=== PATIENT | male | born 1980 | race African-American/Black ===

== ENCOUNTER 2019-10-03 17:47 | Inpatient (IN) | payer OTHER ==
[~2019-10-03] VITALS: Ht 170.2 cm; Wt 113.6 kg
[2019-10-03] MEDS ORDERED: FURO20 PO (18:00)
[2019-10-03] MEDS ORDERED: BUPR1FIL7 SL (18:00)
[2019-10-03] MEDS ORDERED: LISI-662 PO (18:00)
[2019-10-03] MEDS ORDERED: METO50 PO (18:00)
[2019-10-03] MEDS ORDERED: CloNIDine HCL 0.1 MG TABLET PO ONE (18:15)
[2019-10-03 18:52] LABS: BASOPHILS % (AUTO) 0.2 % (0.0-2.0); EOSINOPHILS % (AUTO) 0.1 % (1.0-6.0); HEMATOCRIT 38.9 % (41-53); HEMOGLOBIN 13.2 g/dL (13.5-17.5); LYMPHOCYTES # (AUTO) 1.5 K/uL (1.0-4.8); LYMPHOCYTES % (AUTO) 21.5 % (22.0-44.0); MEAN CORPUSCULAR HEMOGLOBIN 29.1 pg (26.0-34.0); MEAN CORPUSCULAR HGB CONC 33.9 G/dL (31.0-37.0); MEAN CORPUSCULAR VOLUME 86 fL (80-100); MONOCYTES # (AUTO) 0.4 K/uL (0.1-1.0); MONOCYTES % (AUTO) 5.5 % (2.0-9.0); NEUTROPHILS # (AUTO) 5.1 K/uL (1.8-7.7); NEUTROPHILS % (AUTO) 72.7 % (40.0-70.0); PLATELET COUNT (AUTO) 208 K/uL (150-450); RED BLOOD CELL COUNT(AUTO) 4.53 MIL/uL (4.50-5.90); RED CELL DISTRIBUTION WIDTH 13.8 % (11.5-14.5)
[2019-10-03 19:15] LABS: ANION GAP 11 mmol/L (8-16); CALCIUM, TOTAL 8.6 mg/dL (8.8-10.5); CARBON DIOXIDE 25 mmol/L (22-29); CHLORIDE 105 mmol/L (98-107); CREATININE 1.16 mg/dL (0.60-1.30); GLOMERULAR FILTR. RATE CALC > 60 mL/min (>60); GLUCOSE,RANDOM 98 mg/dL (70-110); POTASSIUM 3.6 mmol/L (3.5-5.1); SODIUM SERUM 141 mmol/L (136-145); UREA NITROGEN, BLOOD 11 mg/dL (7-18)
[2019-10-03 19:23] LABS: ALANINE AMINOTRANSFERASE 16 U/L (12-78); ALBUMIN 3.5 g/dL (3.4-5.0); ALKALINE PHOSPHATASE 67 U/L (46-116); ASPARTATE AMINOTRANSFERASE 19 U/L (15-37); BILIRUBIN,TOTAL 0.7 mg/dL (0.1-1.0)
[2019-10-03] MEDS ORDERED: ACETAMINOPHEN 325 MG TABLET PO PRN ×2 (20:30→22:30)
[2019-10-03] MEDS ORDERED: ONDANSETRON HCL 4 MG/2 ML VIAL IVP PRN (20:30)
[2019-10-03] MEDS ORDERED: 0.9% SODIUM CHLORIDE 10 ML SYRINGE IVP PRN (20:30)
[2019-10-03] MEDS ORDERED: ONDANSETRON HCL 4 MG TABLET PO PRN (21:30)
[2019-10-03] MEDS ORDERED: ALBUTEROL SULFATE HFA 90 MCG/PUFF 8 GM INHALER IH PRN (22:30)
[2019-10-03] MEDS ORDERED: PETROLATUM,WHITE 28 GM JELLY TP PRN (22:30)
[2019-10-03] MEDS ORDERED: METOCLOPRAMIDE HCL 5 MG/ML 2 ML VIAL IVP PRN (22:30)
[2019-10-03] MEDS ORDERED: LORazepam 2 MG/ML VIAL IVP PRN (22:30)
[2019-10-03] MEDS ORDERED: GuaiFENesin/D-METHORPHAN [SUGAR-FREE] 200-20MG/10 ML SYRUP UDCUP PO PRN (22:30)
[2019-10-03] MEDS ORDERED: MAGNESIUM HYDROXIDE SUSPENSION 30 ML UDCUP PO PRN (22:30)
[2019-10-03] MEDS ORDERED: NICOTINE 14 MG/24 HOUR PATCH TD PRN (22:30)
[2019-10-03] MEDS ORDERED: DOCUSATE SODIUM 100 MG CAPSULE PO PRN (22:30)
[2019-10-03] MEDS ORDERED: LOPERAMIDE HCL 2 MG CAPSULE PO PRN (22:30)
[2019-10-03 22:32] VITALS: BP 178/97
[2019-10-03] MEDS: IBUPROFEN 400 MG TABLET PO PRN (22:42)
[2019-10-03] MEDS: MAG HYDROX/AL HYDROX/SIMETH ES 30 ML SUSPENSION UDCUP PO PRN (22:46)
[2019-10-04 04:45] VITALS: BP 153/81
[2019-10-04] MEDS: LORazepam 1 MG TABLET PO PRN ×2 (07:06→14:06)
[2019-10-04 08:16] VITALS: BP 162/88
[2019-10-04 08:32] LABS: BASOPHILS % (AUTO) 0.3 % (0.0-2.0); EOSINOPHILS % (AUTO) 0.4 % (1.0-6.0); HEMATOCRIT 41.3 % (41-53); HEMOGLOBIN 14.1 g/dL (13.5-17.5); LYMPHOCYTES # (AUTO) 1.2 K/uL (1.0-4.8); LYMPHOCYTES % (AUTO) 25.6 % (22.0-44.0); MEAN CORPUSCULAR HEMOGLOBIN 28.9 pg (26.0-34.0); MEAN CORPUSCULAR HGB CONC 34.1 G/dL (31.0-37.0); MEAN CORPUSCULAR VOLUME 85 fL (80-100); MONOCYTES # (AUTO) 0.3 K/uL (0.1-1.0); MONOCYTES % (AUTO) 5.9 % (2.0-9.0); NEUTROPHILS # (AUTO) 3.3 K/uL (1.8-7.7); NEUTROPHILS % (AUTO) 67.8 % (40.0-70.0); PLATELET COUNT (AUTO) 203 K/uL (150-450); RED BLOOD CELL COUNT(AUTO) 4.87 MIL/uL (4.50-5.90)
[2019-10-04 08:58] LABS: ALANINE AMINOTRANSFERASE 24 U/L (12-78); ALBUMIN 3.4 g/dL (3.4-5.0); ALKALINE PHOSPHATASE 76 U/L (46-116); ANION GAP 6 mmol/L (8-16); ASPARTATE AMINOTRANSFERASE 20 U/L (15-37); BILIRUBIN,TOTAL 1.1 mg/dL (0.1-1.0); CALCIUM, TOTAL 8.6 mg/dL (8.8-10.5); CARBON DIOXIDE 28 mmol/L (22-29); CHLORIDE 106 mmol/L (98-107); CREATININE 1.08 mg/dL (0.60-1.30); GLOMERULAR FILTR. RATE CALC > 60 mL/min (>60); GLUCOSE,RANDOM 103 mg/dL (70-110); POTASSIUM 3.8 mmol/L (3.5-5.1); SODIUM SERUM 140 mmol/L (136-145); TOTAL PROTEIN, SERUM 7.1 g/dL (6.4-8.2); UREA NITROGEN, BLOOD 9 mg/dL (7-18)
[2019-10-04] MEDS: IBUPROFEN 400 MG TABLET PO PRN (09:24)
[2019-10-04] MEDS: ONDANSETRON HCL 4 MG TABLET PO PRN (11:31)
[2019-10-04 16:00] VITALS: BP 147/85
[2019-10-04 20:02] VITALS: BP 150/96
[2019-10-04] MEDS ORDERED: TEMAZEPAM 15 MG CAPSULE PO SCH (21:00)
[2019-10-05] MEDS: LORazepam 1 MG TABLET PO PRN (04:20)
[2019-10-05 04:24] VITALS: BP 161/92
[2019-10-05] MEDS: IBUPROFEN 400 MG TABLET PO PRN ×2 (04:31→22:55)
[2019-10-05 07:42] VITALS: BP 174/99
[2019-10-05] MEDS: DICYCLOMINE HCL 10 MG CAPSULE PO PRN (09:07)
[2019-10-05] MEDS: METOPROLOL TARTRATE 50 MG TABLET PO SCH (09:07)
[2019-10-05] MEDS: FUROSEMIDE 20 MG TABLET PO SCH (09:08)
[2019-10-05] MEDS: ONDANSETRON HCL 4 MG TABLET PO PRN (09:08)
[2019-10-05] MEDS: LISINOPRIL 20 MG TABLET PO SCH (09:56)
[2019-10-05] MEDS: BusPIRone HCL 10 MG TABLET PO SCH ×2 (12:02→20:25)
[2019-10-05] MEDS ORDERED: HydrALAZINE HCL 25 MG TABLET PO SCH (13:00)
[2019-10-05] MEDS: HydrALAZINE HCL 25 MG TABLET PO SCH ×3 (13:25→20:25)
[2019-10-05 15:24] VITALS: BP 145/113
[2019-10-05 19:00] VITALS: BP 143/91
[2019-10-05] MEDS: ALPRAZolam 0.25 MG TABLET PO PRN (22:55)
[2019-10-06 04:34] VITALS: BP 146/88
[2019-10-06] MEDS: IBUPROFEN 400 MG TABLET PO PRN (04:42)
[2019-10-06 07:29] LABS: BASOPHILS % (AUTO) 0.2 % (0.0-2.0); EOSINOPHILS % (AUTO) 0.5 % (1.0-6.0); HEMATOCRIT 38.4 % (41-53); HEMOGLOBIN 13.5 g/dL (13.5-17.5); LYMPHOCYTES # (AUTO) 1.6 K/uL (1.0-4.8); LYMPHOCYTES % (AUTO) 31.2 % (22.0-44.0); MEAN CORPUSCULAR HEMOGLOBIN 29.3 pg (26.0-34.0); MEAN CORPUSCULAR HGB CONC 35.1 G/dL (31.0-37.0); MEAN CORPUSCULAR VOLUME 84 fL (80-100); MONOCYTES # (AUTO) 0.4 K/uL (0.1-1.0); NEUTROPHILS # (AUTO) 3.1 K/uL (1.8-7.7); NEUTROPHILS % (AUTO) 61.1 % (40.0-70.0); PLATELET COUNT (AUTO) 227 K/uL (150-450); RED CELL DISTRIBUTION WIDTH 13.8 % (11.5-14.5)
[2019-10-06 07:38] VITALS: BP 164/106
[2019-10-06 07:51] LABS: CARBON DIOXIDE 23 mmol/L (22-29); CHLORIDE 108 mmol/L (98-107); POTASSIUM 3.5 mmol/L (3.5-5.1); SODIUM SERUM 141 mmol/L (136-145)
[2019-10-06 07:52] LABS: ANION GAP 10 mmol/L (8-16); CALCIUM, TOTAL 8.5 mg/dL (8.8-10.5); CREATININE 1.17 mg/dL (0.60-1.30); GLOMERULAR FILTR. RATE CALC > 60 mL/min (>60); GLUCOSE,RANDOM 95 mg/dL (70-110); UREA NITROGEN, BLOOD 10 mg/dL (7-18)
[2019-10-06] MEDS: BusPIRone HCL 10 MG TABLET PO SCH ×2 (08:14→19:59)
[2019-10-06] MEDS: METOPROLOL TARTRATE 50 MG TABLET PO SCH (08:14)
[2019-10-06] MEDS: HydrALAZINE HCL 25 MG TABLET PO SCH ×4 (08:14→19:56)
[2019-10-06] MEDS: FUROSEMIDE 20 MG TABLET PO SCH (08:14)
[2019-10-06] MEDS: DICYCLOMINE HCL 10 MG CAPSULE PO PRN ×2 (08:14→14:41)
[2019-10-06] MEDS: LISINOPRIL 20 MG TABLET PO SCH (08:16)
[2019-10-06] MEDS: ALPRAZolam 0.25 MG TABLET PO PRN ×3 (08:23→19:59)
[2019-10-06 16:13] VITALS: BP 158/115
[2019-10-06 17:50] VITALS: BP 154/96
[2019-10-06] MEDS: MAG HYDROX/AL HYDROX/SIMETH ES 30 ML SUSPENSION UDCUP PO PRN (20:05)
[2019-10-06 20:10] VITALS: BP 163/100
[2019-10-07] MEDS: DICYCLOMINE HCL 10 MG CAPSULE PO PRN (05:49)
[2019-10-07] MEDS: MAG HYDROX/AL HYDROX/SIMETH ES 30 ML SUSPENSION UDCUP PO PRN ×2 (05:49→08:54)
[2019-10-07] MEDS: ALPRAZolam 0.25 MG TABLET PO PRN ×2 (05:49→10:38)
[2019-10-07 08:34] VITALS: BP 165/97
[2019-10-07] MEDS: METOPROLOL TARTRATE 50 MG TABLET PO SCH (08:46)
[2019-10-07] MEDS: HydrALAZINE HCL 25 MG TABLET PO SCH (08:46)
[2019-10-07] MEDS: LISINOPRIL 20 MG TABLET PO SCH (08:46)
[2019-10-07] MEDS: BusPIRone HCL 10 MG TABLET PO SCH (08:47)
[2019-10-07] MEDS: FUROSEMIDE 20 MG TABLET PO SCH (08:49)
[2019-10-07] MEDS ORDERED: HYDR-2924 PO ×2 (12:31)
[2019-10-07] MEDS ORDERED: BUSP10TA23 PO (12:32)
[2019-10-07] MEDS ORDERED: ACET-784 PO (12:36)
[2019-10-07] MEDS ORDERED: HydrALAZINE HCL 25 MG TABLET PO SCH (13:00)
== END 2019-10-07 15:00 | DRG 897 ==
LOC: EMS 17:47 → 6S 21:18
PROVIDERS: ADMIT Internal Medicine; ATTEND Internal Medicine
DX: F11.23 Opioid dependence with withdrawal (principal); F32.9 Major depressive disorder, single episode, unspecified; F41.1 Generalized anxiety disorder; I50.9 Heart failure, unspecified; I11.0 Hypertensive heart disease with heart failure; Z79.899 Other long term (current) drug therapy; Z88.8 Allergy status to other drugs, medicaments and biological substances
CPT/HCPCS: G0480; J2765; Q0162